=== PATIENT | female | born 1990 ===

== ENCOUNTER 2018-07-10 20:03 | Emergency (ER) | payer OTHER ==
[~2018-07-10] VITALS: Ht 152.4 cm; Wt 56.7 kg
[~2018-07-10 20:03] MED LIST: MOTRIN800 MG PO; OSEL75CA PO; PYRIDIUM100 M1 PO; TUSSI PRES-B L120 M1 PO; VOLTAREM 50 MG PO; [UNRECOGNIZED DRUG - OTHER]
== END 2018-07-10 21:13 | disposition home or self-care (01) ==
LOC: ER 20:03
DX: L26 Exfoliative dermatitis (principal); R21 Rash and other nonspecific skin eruption